=== PATIENT | female | born 1955 | race Caucasian/White ===

== ENCOUNTER → 2017-11-29 | Day surgery (SDC) | payer OTHER ==
[~2017-11-29] VITALS: Ht 179.1 cm; Wt 86.0 kg
[~2017-11-29] MED LIST: ASPI-516 CHEW; BUPIVACAINE/EPINEPHRINE 0.5% PF 10 ML VIAL INFIL ONE; CHLORHEXIDINE GLUCONATE 2 % 1 PACK (2 CLOTHS) TOPICAL PRN; CHLORHEXIDINE GLUCONATE 4% SOLN 120 ML BTL TOPICAL SCH; FISH100020 PO; LACTATED RINGER'S 1000 ML IV PRN; LATA0.002 EACH EYE; LEVO25TA4 PO; LISI2.5T3 PO; MIDAZOLAM HCL 5 MG/5 ML VIAL ONE; OMEP10CA PO; POVIDONE IODINE 5% (ANTISEPSIS KIT) 4 APPLICATIONS EACH NARE PRN; PROPOFOL 200 MG/20 ML AMP ONE; ROPIVACAINE 0.5% PF INJ 30 ML VIAL ONE; SIMV5TAB3 PO; SODIUM CHLORID 0.9% 500 ML IV PRN; SUGAMMADEX SODIUM 200 MG/2 ML VIAL IV PUSH ONE; VITA1000 PO; ceFAZolin 2 GM PREMIX 50 ML IV SCH; fentaNYL CITRATE 250 MCG/5 ML AMP ONE
[2017-11-29 08:15] VITALS: PULSE 83
[2017-11-29] MEDS: VANCOMYCIN 1000 MG/NS 250 ML (for <70 kg) IV SCH ×4 (08:15→11:00)
[2017-11-29 09:46] VITALS: PULSE 97
[2017-11-29 11:20] VITALS: PULSE 94
--- NOTE | 2017-11-29 11:29 | MP ---
cc: Oracio Saez MD DATE OF OPERATION: 11/29/2017 SURGEON: Oracio Saez MD. PREOPERATIVE DIAGNOSIS: Rotator cuff tear, left shoulder. POSTOPERATIVE DIAGNOSIS: Rotator cuff tear, left shoulder. PROCEDURE PERFORMED: Anterior decompression with repair of rotator cuff, chronic. DETAILS OF PROCEDURE: The patient was placed on the operating room table in the supine position. Adequate general anesthesia was administered by the anesthesiologist. The patient was then placed in a modified beach chair position and the left shoulder was prepped and draped in the usual sterile fashion. A time-out was called and the patient's name, procedure, location, etc. were fully confirmed. A curved short incision was made over the acromial process and taken down through the subcutaneous tissues while all bleeding points were electrocauterized. Deep fascia was incised along with the insertion origin of the deltoid muscle onto the anterior border of the acromial process. This was then taken down deeply while protecting the underlying cuff. The coracoacromial ligament was identified, thickened and excised. The bursal tissue surrounding the rotator cuff was partially visualized and fully visualized after acromioplasty was performed with removal of the undersurface and anterior portion of the acromial process. This was carried out with high speed bur, supplemented by hand instruments. The rotator cuff now was visualized and there did appear to be a transverse scar present with some retraction and this was repairable with interrupted sutures of #2 FiberWire. The shoulder was brought through a range of motion and some adhesions were broken up. The deltoid muscle was reinserted through the bone with interrupted sutures of the same #2 FiberWire. Subcutaneous tissue was closed with interrupted 3-0 Vicryl. Skin edges were approximated with a running subcuticular suture of 4-0 Vicryl. Steri-Strips were applied, a bulky dressing was applied over this with a sling and swathe immobilizer. Sponge count, needle counts and instrument counts were reported correct x2. The estimated blood loss was less than 50 mL. CONDITION: The patient tolerated the procedure well and went to the recovery room in satisfactory condition. Oracio Saez MD DARIELA/DL , 11:06 AM , 11:28 AM
[2017-11-29 12:55] VITALS: BP 116/61; PULSE 89; RESP 16; TEMP 98.1; O2SAT 98
== END | disposition home or self-care (01) ==
LOC: PHSDC 06:18 → EDSEX 06:18
PROVIDERS: ATTEND Orthopaedic Surgery
DX: M75.122 Complete rotator cuff tear or rupture of left shoulder, not specified as traumatic (principal); I10 Essential (primary) hypertension
CPT/HCPCS: 01630; 23420; 64415; J0690; J2250; J2795; J3010; J3370; J7050; J7120